=== PATIENT | male | born 1940 | race Caucasian/White ===

== ENCOUNTER 2016-07-04 00:04 | Observation (INO) | payer MEDICARE, OTHER ==
[2016-07-04] MEDS ORDERED: Aspirin Low Dose CHEW TAB* 81 MG PO ONE (00:09)
[2016-07-04 00:47] LABS: Hematocrit 35 % (42-52); Hemoglobin 11.6 g/dl (14.0-18.0); Mean Corpuscular HGB Conc 33 g/dl (31-36); Mean Corpuscular Hemoglobin 28 pg (27-31); Mean Corpuscular Volume 85 fL (80-94); Mean Platelet Volume 8 um3 (7.4-10.4); Red Blood Count 4.13 10^6/ul (4.0-5.4); Red Cell Distribution Width 14 % (10.5-15); White Blood Count 5.1 10^3/ul (3.5-10.8)
[2016-07-04 00:54] LABS: Calcium 9.4 mg/dL (8.6-10.3); EGFR African American 76.9 (>60); EGFR Non-African American 59.8 (>60); Globulin 3.1 g/dL (2-4); Potassium 3.6 mmol/L (3.5-5.0); Total Bilirubin 0.5 mg/dL (0.2-1.0); Total Protein 7.1 g/dL (6.4-8.9)
[2016-07-04 00:55] LABS: Troponin I 0.01 ng/mL (<0.04)
[2016-07-04] MEDS ORDERED: Morphine INJ* 4 MG/ML 1 ML SYRINGE IV ONE (01:02)
--- NOTE | 2016-07-04 01:14 | ED ---
Ina Carcamo Rebecca, scribed for Maya Guzmán MD on 07/04/16 at 0014 . HPI Chest Pain - HPI Summary HPI Summary: Pt is a 76 y/o M who presents to ED c/o CP. Pt reports he has been experiencing CP intermittently for "I don't know how long" with the current episode began gradually 1 week ago. Reports "I could feel it come on like a pulled muscle." Pain has been constant since onset, worsening at 2200 tonight. Pain is located in the left anterior region with radiation to the back and is currently ranked 10/10 and characterized as sharp. Sx aggravated and alleviated by nothing. Denies any other sx including fever. PMHx CAD, TN. No PSHx cardiac stents. FHx TN <55 y/o (mother in 50s). No PMHx DVT, CA. PCP is Dr Torres, lace cutter is Dr. Ivey. Reports his last stress test was 3 months ago, during which his lace cutter found that he had experienced an TN between his previous test and the current one. She was unsure when the TN had occurred. Denies any recent travel. Is not on blood thinners. - History of Current Complaint Chief Complaint: EDChestPainROMI Time Seen by Provider: 07/04/16 00:09 Hx Obtained From: Patient Onset/Duration: Started Hours Ago, Still Present Time of Onset: 22:00 Timing: Intermittent Initial Severity: Moderate Current Severity: Severe Pain Intensity: 8 Pain Scale Used: 0-10 Numeric Chest Pain Location: Left Anterior Chest Pain Radiates: Yes Chest Pain Radiates To:: Back Character: Sharp/Stabbing Aggravating Factor(s): Nothing Alleviating Factor(s): Nothing Associated Signs and Symptoms: Positive: Negative. Negative: Fever - Allergy/Home Medications Allergies/Adverse Reactions: Allergies Allergy/AdvReac Type Severity Reaction Status Date / Time Tramadol [From Ultracet] Allergy Unknown Itching Verified 04/01/16 08:35 Poison Sol[place]ad Extract/Poison Allergy ITCHING,REDNESS, Verified 04/01/16 08:35 Tracy Extra BLISTERS [From Poison Soledad/Tracy Extract] Poison Sumac Extract Allergy Itching, Verified 04/01/16 08:35 REDNESS, BLISTERS PMH/Surg Hx/FS Hx/Imm Hx Endocrine/Hematology History: Reports: Hx Thyroid Disease - THYROIDECTOMY Denies: Hx Diabetes Cardiovascular History: Reports: Hx Angina, Hx Coronary Artery Disease, Hx Hypercholesterolemia, Hx Hypertension - CONTROL WITH MEDS, Hx Myocardial Infarction, Other Cardiovascular Problems/Disorders - CHOLESTEROL CONTROL WITH ME9 Denies: Hx Deep Vein Thrombosis, Hx Pacemaker/ICD, Hx Valvular Heart Disease Respiratory History: Reports: Hx Sleep Apnea - NO MACHINES Denies: Hx Asthma, Hx Chronic Obstructive Pulmonary Disease (COPD), Other Respiratory Problems/Disorders GI History: Reports: Hx Gastroesophageal Reflux Disease - CONTROL WITH MEDICATION, Hx Jaundice History: Denies: Hx Renal Disease Musculoskeletal History: Reports: Hx Arthritis, Hx Back Problems, Hx Bursitis, Other Musculoskeletal History - HX OF CERVICAL SPONDYLOSIS Sensory History: Reports: Hx Contacts or Glasses - GLASSES Denies: Hx Hearing Aid Opthamlomology History: Reports: Hx Contacts or Glasses - GLASSES Neurological History: Reports: Hx Headaches - OCCASIONAL, Hx Migraine Psychiatric History: Denies: Hx Panic Disorder - Surgical History Surgery Procedure, Year, and Place: PARTIAL THYROID REMOVAL, [facility]. GALLBLADDER X2 ONE FROM COMPLICATIONS, [facility]. 2009 ABDOMINAL HERNIA REPAIRS WITH MESH 2009, [facility],. MOLES REMOVED Hx Anesthesia Reactions: No - Immunization History Date of Tetanus Vaccine: 2004 Date of Influenza Vaccine: None Infectious Disease History: No Infectious Disease History: Reports: Hx Hepatitis - 1968 Denies: Hx Clostridium Difficile, Hx Human Immunodeficiency Virus (HIV), Hx of Known/Suspected MRSA, Hx Shingles, Hx Tuberculosis, History Other Infectious Disease, Traveled Outside the [place] in Last 30 Days - Family History Known Family History: Positive: Cardiac Disease - TN <55 y/o (mother, in 50s), Hypertension, Other - younger sister in her 30s of unknown causes - Social History Alcohol Use: Rare Hx Substance Use: No Substance Use Type: Reports: None Hx Tobacco Use: Yes Smoking Status (MU): Former Smoker Type: Cigarettes Amount Used/How Often: 1-2 PPD Have You Smoked in the Last Year: No Review of Systems Negative: Fever Positive: Chest Pain All Other Systems Reviewed And Are Negative: Yes Physical Exam - Summary Physical Exam Summary: General: Well appearing, moderate distress Skin: Warm, Skin Color Reflects Adequate Perfusion, Dry Eyes: EOMI, ANUP ENT: Pharynx normal, TMs normal Neck: Supple, nontender Respiratory: CTA, breath sounds present, no rhonchi, no wheezes, no rales Cardiovascular: RRR, no murmur, no rub, no gallop Abdomen: Soft, nontender, Non-distended, no guarding, no rebound Bowel: Present Musculoskeletal: KALI, No edema Neuro: Sensory/motor intact, A&Ox3, CN intact 2-12 Psych: Affect/mood appropriate Triage Information Reviewed: Yes Vital Signs On Initial Exam: Initial Vitals Temp Pulse Resp BP Pulse Ox 97.4 F 65 11 169/92 95 07/04/16 00:06 07/04/16 00:06 07/04/16 00:06 07/04/16 00:06 07/04/16 00:06 Vital Signs Reviewed: Yes - Liseth Coma Scale Coma Scale Total: 15 Diagnostics - Vital Signs Vital Signs Temp Pulse Resp BP Pulse Ox 07/04/16 00:06 97.4 F 65 11 169/92 95 - Laboratory Lab Results: Lab Results 07/04/16 07/04/16 07/04/16 Range/Units 00:16 00:16 00:16 WBC 5.1 (3.5-10.8) 10^3/ul RBC 4.13 (4.0-5.4) 10^6/ul Hgb 11.6 L (14.0-18.0) g/dl Hct 35 L (42-52) % MCV 85 (80-94) fL MCH 28 (27-31) pg MCHC 33 (31-36) g/dl RDW 14 (10.5-15) % Plt Count 238 (150-450) 10^3/ul MPV 8 (7.4-10.4) um3 Neut % (Auto) 41.6 (38-83) % Lymph % (Auto) 23.4 L (25-47) % Kane % (Auto) 20.6 H (1-9) % Eos % (Auto) 13.8 H (0-6) % Baso % (Auto) 0.6 (0-2) % Absolute Neuts (auto) 2.1 (1.5-7.7) 10^3/ul Absolute Lymphs (auto) 1.2 (1.0-4.8) 10^3/ul Absolute Monos (auto) 1.1 H (0-0.8) 10^3/ul Absolute Eos (auto) 0.7 H (0-0.6) 10^3/ul Absolute Basos (auto) 0 (0-0.2) 10^3/ul Absolute Nucleated RBC 0.01 10^3/ul Nucleated RBC % 0.1 Sodium 136 (133-145) mmol/L Potassium 3.6 (3.5-5.0) mmol/L Chloride 105 (101-111) mmol/L Carbon Dioxide 24 (22-32) mmol/L Anion Gap 7 (2-11) mmol/L BUN 25 H (6-24) mg/dL Creatinine 1.19 H (0.67-1.17) mg/dL Est GFR ( Amer) 76.9 (>60) Est GFR (Non-Af Amer) 59.8 (>60) BUN/Creatinine Ratio 21.0 H (8-20) Glucose 107 H (70-100) mg/dL Lactic Acid 0.5 (0.5-2.0) mmol/L Calcium 9.4 (8.6-10.3) mg/dL Total Bilirubin 0.50 (0.2-1.0) mg/dL AST 27 (13-39) U/L ALT 21 (7-52) U/L Alkaline Phosphatase 56 (34-104) U/L Troponin I 0.01 (<0.04) ng/mL Total Protein 7.1 (6.4-8.9) g/dL Albumin 4.0 (3.2-5.2) g/dL Globulin 3.1 (2-4) g/dL Albumin/Globulin Ratio 1.3 (1-3) Result Diagrams: 07/04/16 00:16 07/04/16 00:16 Lab Statement: Any lab studies that have been ordered have been reviewed, and results considered in the medical decision making process. - Radiology CXR Xray Interpretation: No Acute Changes Radiology Interpretation Completed By: ED Physician - EKG 0003 Cardiac Rate: NL - 65 bpm EKG Rhythm: Sinus Rhythm EKG Interpretation: No Q waves, no ST elevations Chest Pain Course/Dx - Course Course Of Treatment: 76 yo male who reports being told by his lace cutter at his last stress that he had sustained a silent TN. Here he reports 1 week of sustained cp worse for the last 2 hours radiating to his back, his bp is elevated, first trop and ekg are neg. CTA of the chest/abd/pelvis are ordered to R/o dissection and is aware. - Diagnoses Provider Diagnoses: Chest pain - Provider Notifications Discussed Care Of Patient With: Dr. Carson, hospitalist, who accepts pt for admission. Time Discussed With Above Provider: 01:04 Discharge - Discharge Plan Condition: Good Disposition: ADMITTED TO [facility] Referrals: Kofi Torres MD [Primary Care Provider] - The documentation as recorded by the Ina bryson Rebecca accurately reflects the service I personally performed and the decisions made by me, Maya Guzmán MD.
[2016-07-04] MEDS ORDERED: Iodixanol* (CONTRAST) 320 MG/ML 100 ML SDV IV ONE (01:26)
[2016-07-04] MEDS ORDERED: Melatonin (NF) 3 MG TAB PO PRN (02:27)
[2016-07-04] MEDS ORDERED: Ondansetron INJ* 2 MG/ML VIAL IV PRN (02:27)
[2016-07-04] MEDS ORDERED: Albuterol 2.5 MG/3 ML NEB.SOL* (0.083%) INH PRN (02:27)
[2016-07-04] MEDS ORDERED: Morphine INJ* 2 MG/ML 1 ML SYRINGE IV PRN (02:27)
[2016-07-04] MEDS ORDERED: NS 0.9% 1000 ML* 1,000 ML IV SCH (02:30)
--- NOTE | 2016-07-04 03:31 | HP ---
H&P (Free Text) History and Physical: PCP: José Manuel Torres MD Cardiology: José Manuel Ivey MD Date/Time of Evaluation: 07/04/2016 0230 CC: chest pain HPI: Mr Amato is a 76YO obese male HX CAD/[place] who is a vague historian. He has been having episodic L chest pain followed by José Manuel Ivey MD cardiology. Tonight he brought his [place] [facility] [place] a gait disturbance and while awaiting her evaluation experienced a sudden exacerbation of his anterior L chest pain. He relates the current episode began ~1 week ago and has been continuous although waxing/waning, but tonight increased suddenly. He denies change in activity or exercise. Deep breath makes the pain some worse and it radiates through to the mid-back, but there is no overt SOB, palpitations, N/V, sweats, or light- headedness. He describes it as a "pulled muscle", but denies squeezing/cramping character. He reports he most recent stress test and ECHO were 2-3 months ago, but reports are not available for review. PMedHx CAD/[place] HTN HLD hypothyroidism RENEE not on CPAP GERD chronic R shoulder pain/rotator cuff tear Ambulatory Orders Levothyroxine TAB* [Synthorid 112 MCG TAB*] 112 mcg PO EVERY OTHER DAY 09/27/13 Omeprazole CAP* [Prilosec CAP* 20 MG] 40 mg PO BID 04/18/15 Atorvastatin* [Lipitor 20 MG*] 20 mg PO QPM 07/23/15 Aspirin EC Low Dose* [Ecotrin EC Low Dose 81 MG*] 81 mg PO DAILY 10/03/15 Fenofibrate Micronized 200 mg PO QAM 10/03/15 Metoprolol Succinate XL TAB* [Toprol XL TAB*] 25 mg PO DAILY 10/03/15 amLODIPine TAB* [Norvasc 5 mg TAB*] 10 mg PO DAILY 10/03/15 Ajzjuwy-Puzblacdojjxz-Jneyqbea [Excedrin Extra Strength 250-250-65 mg] 3 tab PO DAILY PRN 12/05/15 Allergies Tramadol [From Ultracet] Allergy (Unknown, Verified 04/01/16 08:35) Itching ITCHING ON ARM Poison Soledad Extract/Poison [place] Extra [From Poison Soledad/[place] Extract] Allergy ( Verified 04/01/16 08:35) ITCHING,REDNESS, BLISTERS Poison Sumac Extract Allergy (Verified 04/01/16 08:35) Itching, REDNESS, BLISTERS PSurgHx partial thyroidectomy R rotator repair x2 cholecystectomy hernia repair SocHx: former smoker w/ ~25PYHX, mild alcohol, no recreational drugs; lives with his ; retired ; full code status FamHx: Mother passed of cancer. Father was murdered in his 50s. Otherwise positive for seizures, cancer, HTN, HLD ROS: as above, otherwise reviewed and all were negative Constitutional: NAD, normally developed, obese white male vitals: Vital Signs Temp 36.3 C 07/04/16 00:06 Pulse 64 07/04/16 03:00 Resp 20 07/04/16 03:00 BP 142/87 07/04/16 01:30 Pulse Ox 99 07/04/16 03:00 Intake & Output 07/03/16 07/03/16 07/04/16 11:59 23:59 11:59 Weight 108.862 kg HEENM: atraumatic; sclera/conjunctiva: non-icteric/mildly injected; hearing: clinically mildly decreased; oropharynx: clear, mucosa moist Neck: soft tissue: non-tender; thyroid: normal Pulmonary: clear to auscultation bilaterally, good aeration, no accessory muscle use CV: RR/RR, normal S1S2, no carotid bruit, no jugular venous distention, 2+ B DP/ PT, no edema Abdominal: soft, non-distended, non-tender, no rebound/guarding/rigidity, normoactive bowel sounds, no hepatosplenomegaly or masses, no costovertebral angle tenderness Musculoskeletal: general: gorssly intact; gait: stable Integumental: normal appearance and texture of exposed skin Psychiatric orientation: AA&O to PPS affect: mild pain, spiking occasionally to moderate pain affect mood: cooperative eye contact: good content: reliable, but vague with a paucity of details responses: timely insight: fair to good Testing: Lab Results 07/04/16 07/04/16 07/04/16 Range/Units 00:16 00:16 00:16 WBC 5.1 (3.5-10.8) 10^3/ul RBC 4.13 (4.0-5.4) 10^6/ul Hgb 11.6 L (14.0-18.0) g/dl Hct 35 L (42-52) % MCV 85 (80-94) fL MCH 28 (27-31) pg MCHC 33 (31-36) g/dl RDW 14 (10.5-15) % Plt Count 238 (150-450) 10^3/ul MPV 8 (7.4-10.4) um3 Neut % (Auto) 41.6 (38-83) % Lymph % (Auto) 23.4 L (25-47) % Mccracken % (Auto) 20.6 H (1-9) % Eos % (Auto) 13.8 H (0-6) % Baso % (Auto) 0.6 (0-2) % Absolute Neuts (auto) 2.1 (1.5-7.7) 10^3/ul Absolute Lymphs (auto) 1.2 (1.0-4.8) 10^3/ul Absolute Monos (auto) 1.1 H (0-0.8) 10^3/ul Absolute Eos (auto) 0.7 H (0-0.6) 10^3/ul Absolute Basos (auto) 0 (0-0.2) 10^3/ul Absolute Nucleated RBC 0.01 10^3/ul Nucleated RBC % 0.1 Sodium 136 (133-145) mmol/L Potassium 3.6 (3.5-5.0) mmol/L Chloride 105 (101-111) mmol/L Carbon Dioxide 24 (22-32) mmol/L Anion Gap 7 (2-11) mmol/L BUN 25 H (6-24) mg/dL Creatinine 1.19 H (0.67-1.17) mg/dL Est GFR ( Amer) 76.9 (>60) Est GFR (Non-Af Amer) 59.8 (>60) BUN/Creatinine Ratio 21.0 H (8-20) Glucose 107 H (70-100) mg/dL Lactic Acid 0.5 (0.5-2.0) mmol/L Calcium 9.4 (8.6-10.3) mg/dL Total Bilirubin 0.50 (0.2-1.0) mg/dL AST 27 (13-39) U/L ALT 21 (7-52) U/L Alkaline Phosphatase 56 (34-104) U/L Troponin I 0.01 (<0.04) ng/mL Total Protein 7.1 (6.4-8.9) g/dL Albumin 4.0 (3.2-5.2) g/dL Globulin 3.1 (2-4) g/dL Albumin/Globulin Ratio 1.3 (1-3) ECG, personally reviewed: NSR rate 65, no ischemia CXR, personally reviewed: no acute cardiopulmonary process noted CTA chest/abd/pel, personally reviewed: Impression: No aortic dissection or aneurysm seen. No central pulmonary embolism identified. No acute abnormality seen in the chest. Hypervascular focus seen in the lateral segment of the left lobe of the liver. This finding is nonspecific. In the setting of hepatitis C, consider further evaluation. No inflammatory process identified in the abdomen or pelvis. No abdominal mass, adenopathy, or collection seen. Impression: 76M HX CAD/KY presenting with chest pain for r/o ACS DIAGNOSIS & PLAN Primary chest pain r/o ACS; HX CAD/KY : telemetry : aspirin : metoprolol (took home med today) : supplemental oxygen : trend troponin : supportive care : obtain records from José Manuel Ivey MD regarding recent stress/ECHO Secondary HTN : continue metoprolol & amlodipine HLD : continue atorvastatin : heart healthy diet hypothyroidism : continue levothyroxine GERD : continue omeprazole chronic R shoulder pain/rotator cuff tear : pain control Admission Rational: CDU observation for r/o ACS DVTp: heparin SQ Code Status: full HCP: sonRegulo
[2016-07-04] MEDS: Acetaminophen TAB* 325 MG PO PRN ×2 (05:59→12:11)
[2016-07-04] MEDS ORDERED: Omeprazole CAP* 20 MG PO SCH (06:00)
--- NOTE | 2016-07-04 08:03 | RAD ---
INDICATION: Left-sided chest pain COMPARISON: Similar chest x-ray December 06, 2015 TECHNIQUE: Single AP portable view of the chest was obtained. FINDINGS: Image quality is compromised due to the relative inferiority of a portable chest x-ray. The heart and mediastinum exhibit normal size and contour. The lungs are grossly clear. There is no evidence of a large pleural effusion. Visualized bones are normal for the patient's age. IMPRESSION: No radiographic evidence for acute cardiopulmonary abnormality on this portable chest x-ray.
--- NOTE | 2016-07-04 08:38 | RAD ---
STUDY: CT angiography of the chest, abdomen and pelvis. INDICATION: Chest pain with radiation to the back. Relevant surgical history includes thyroidectomy, cholecystectomy and abdominal hernia repair with mesh placement. COMPARISON: Similar CTA dated March 03, 2014 TECHNIQUE: Multidetector CT angiography of the chest, abdomen and pelvis were obtained from the lung apices to the ischial tuberosities after the intravenous injection of 100 mL of Visipaque 320. Reformats were created in the coronal and sagittal planes. 3-D vascular imaging was created from the source images and reviewed as well. ANGIOGRAPHIC FINDINGS: There is mild calcified atherosclerosis involving the coronary arteries, aortic ring and scattered the thoracic aorta. There is no pathologic aneurysmal dilatation or dissection visualized. The infrarenal abdominal aorta exhibits very mild scattered atherosclerotic calcification but no aneurysmal dilatation or dissection. The branch vessels are widely patent both at the arch of the aorta and the abdominal aorta. Incidental note is made of a common origin of the right brachiocephalic trunk and left common carotid artery. Anatomic variant includes a replaced right renal artery with the artery supplying the right kidney branching off of the right of midline posterior lateral supradiaphragmatic aorta, crossing the diaphragm before supplying the right kidney. NON ANGIOGRAPHIC FINDINGS: Chest: The lungs exhibit diffuse centrilobular emphysematous changes similar in appearance to the previous CTA. At the superior aspect of the right lower lobe (image 29 of 75) there is a 6 mm slightly irregular pulmonary nodule. There are no large pleural effusions. There is no mediastinal or hilar lymphadenopathy. The heart is grossly normal in appearance. Abdomen \T\ Pelvis: In the left lobe of the liver there is an approximately 2.1 cm focus exhibiting arterial phase enhancement along the periphery (image 101) that was not definitely visualized on the previous CT examination. In the right lobe of the liver there is a fluid density cyst stable compared to the previous CT examination. The liver is otherwise homogenous in attenuation. The spleen, pancreas and adrenal glands are grossly normal in appearance. The gallbladder is surgically absent. The kidneys are normal in appearance without focal mass, calcification or signs of hydronephrosis. The renal cortices enhance promptly and symmetrically on arterial phase imaging. The small and large bowel are not distended. The appendix is normal in appearance (coronal image 49). Distal colonic diverticula are noted, but none exhibit focal inflammatory change. There is no gross retroperitoneal or mesenteric lymphadenopathy. Scattered calcifications are noted in the prostate gland. Multilevel degenerative changes of the thoracic and lumbar spine include loss of intervertebral disc height, vacuum disc phenomenon and marginal osteophyte formation, bridging at the lower anterior thoracic spine.There are no sinister bone lesions. IMPRESSION: 1. No CTA evidence of aortic aneurysm or acute dissection. There are chronic changes as well as anatomical variants described in the body the report. 2. In the left lobe of the liver there is a 2.1 cm focus with arterial phase enhancement. This was not definitely seen on the 2015 CT examination and could represent a flash filling hemangioma versus a more sinister etiology. Further characterization can be made with ultrasound or contrast-enhanced MRI of the liver. 3. Additional chronic, degenerative and iatrogenic findings described in the body the report.
[2016-07-04] MEDS ORDERED: Docusate CAP* 100 MG PO SCH (09:00)
[2016-07-04 17:01] VITALS: BP 148/84
--- NOTE | 2016-07-04 17:31 | PN ---
Hospitalist Progress Note . HOSPITALIST DISCHARGE NOTE: See dc instructions and summary by me. Patient stable for dc dc instructions reviewed with the patient at the bedside. DC patient home today.
[2016-07-05] MEDS ORDERED: Heparin VIAL(*) 5000 UNITS/ML VIAL (FIVE THOUSAND) SUBCUT SCH (06:00)
--- NOTE | 2016-07-08 06:30 | DS ---
DISCHARGE SUMMARY: DATE OF ADMISSION: 07/04/16 DATE OF DISCHARGE: 07/04/16. STATUS DURING HOSPITALIZATION: Same-day observation stay. PRIMARY CARE PHYSICIAN: Dr. Kofi Torres. CONSUMER SALES REPRESENTATIVE: Dr. Leatha Ivey. PRINCIPAL DISCHARGE DIAGNOSIS: Chest pain - noncardiac - longstanding, without change - potentially exacerbated by stress of his 's admission, which happened concurrently with his. SECONDARY DIAGNOSES: 1. Known coronary artery disease. 2. History of myocardial infarction. 3. Hypertension. 4. Hyperlipidemia. 5. Hypothyroidism. 6. Obstructive sleep apnea - not on CPAP. 7. Gastroesophageal reflux disease. 8. Chronic right shoulder pain/rotator cuff repair. DISCHARGE MEDICATION REGIMEN: 1. Levothyroxine 112 mcg by mouth daily. 2. Omeprazole 40 mg by mouth twice daily. 3. Atorvastatin 20 mg by mouth daily. 4. Metoprolol succinate XL 25 mg by mouth daily. 5. Amlodipine 10 mg by mouth daily. 6. Fenofibrate micronized 200 mg by mouth in the morning. 7. Aspirin enteric-coated 81 mg by mouth daily. 8. Aspirin/acetaminophen/caffeine (Excedrin Extra Strength) three tabs orally daily as needed for headache when they occur. HISTORY OF PRESENT ILLNESS AND HOSPITAL COURSE: Please see the H and P by Dr. Dale Carson on 07/04/16. In brief, Mr. Amato is a 76-year-old obese man, with a history of coronary artery disease and myocardial infarction, who is a vague historian, but has been having episodic left chest pain for some time. The patient is followed in the outpatient setting by Leatha Ivey, retail parts professional at [facility]. The patient was accompanying his to the emergency room for a separate issue when he started experiencing anterior left chest pain. This had been going on for about a week, but is worse as he waits with his . The patient denies any activity, any exercise. He says deep breathing makes the pain somewhat worse and it radiates to his mid back. There was no overt shortness of breath, palpitations, nausea, vomiting, sweats or lightheadedness. He described the sensation as a "pulled muscle," and with a cramping character. Patient recently had an outpatient stress test and echocardiogram in the past few months and they were not immediately available for review on presentation. Dr. Leatha Ivey kindly provided these documents following his admission, which noted he has an old inferior wall myocardial infarction (based on nuclear stress testing) that was silent. The patient was feeling well. He is being actively managed for secondary prevention of his coronary disease. The impression of the stress test was that there was abnormal maximal cardiac exercise nuclear stress test with small sized inferior apical infarct with mild rossana-infarct ischemia, with concomitant inferior/inferior apical diaphragmatic attenuation artifact, which together was a low risk study. Patient was therefore, discharged in stable condition following recurrent, negative cardiac enzymes and an unremarkable EKG. His labs were at baseline and he is asymptomatic at the point of discharge. He is to follow up with Dr. Torres and Dr. Ivey according to his usual schedule and come back to the hospital if he experiences any new or worrisome symptoms that do not resolve promptly with treatments. TIME SPENT: Total time taken to discharge Mr. Amato was 35 minutes; greater than half the time spent going over the discharge instructions [id number] with the patient at the bedside. CONDITION AT DISCHARGE: Stable. CC: Dr. Kofi Torres; Dr. Leatha Ivey* [id number]/[facility] #: [id number] [facility]
== END 2016-07-04 16:56 | disposition home or self-care (01) ==
LOC: ED 00:04 → MEDTELE 02:25
PROVIDERS: ADMIT Hospitalist; ATTEND Internal Medicine
DX: R07.89 Other chest pain (principal); I25.10 Atherosclerotic heart disease of native coronary artery without angina pectoris; I10 Essential (primary) hypertension; E78.5 Hyperlipidemia, unspecified; E03.9 Hypothyroidism, unspecified; G47.33 Obstructive sleep apnea (adult) (pediatric); K21.9 Gastro-esophageal reflux disease without esophagitis; E66.9 Obesity, unspecified; Z79.899 Other long term (current) drug therapy; Z79.82 Long term (current) use of aspirin; Z87.891 Personal history of nicotine dependence; Z88.8 Allergy status to other drugs, medicaments and biological substances; R94.31 Abnormal electrocardiogram [ECG] [EKG]
CPT/HCPCS: 36415; 71010; 71275; 74174; 80053; 83605; 84484; 85025; 93005; 96360; 96361; 99283; A9270-GY; G0378; Q9967

== ENCOUNTER 2019-01-05 15:25 | Emergency (ER) | payer MEDICARE, OTHER ==
--- NOTE | 2019-01-05 16:31 | ED ---
HPI Chest Pain - HPI Summary HPI Summary: Patient is a 78 y/o M presenting to the ED for a chief complaint of intermittent left-sided chest pain. Patient is present with his . On the night of 01/04/19, patient reports the chest pain became constant. Patient reports the chest pain began a few months ago. The chest pain radiates to the left flank and back. Patient denies SOB, diaphoresis, nausea, vomiting, bilateral LE swelling or pain. Patient recently saw Dr. Arriaga and had a cardiac stress test performed 6 months ago. At that time, he was told he had a AK. PMHx is significant for HLD and HTN. FMHx is significant for AK. Patient denies tobacco use, alcohol use, or drug use. Patient takes [address] Torres is the patient's PCP. Medications reviewed. Allergies noted. - History of Current Complaint Chief Complaint: EDChestPainROMI Time Seen by Provider: 01/05/19 15:44 Hx Obtained From: Patient Onset/Duration: Atraumatic, Still Present Timing: Intermittent Initial Severity: Mild Current Severity: Mild Pain Intensity: 2 Pain Scale Used: 0-10 Numeric Chest Pain Location: Left Anterior Chest Pain Radiates: Yes Chest Pain Radiates To:: Back, Flank - Left Aggravating Factor(s): Nothing Alleviating Factor(s): Nothing Associated Signs and Symptoms: Positive: Chest Pain. Negative: Shortness of Breath, Diaphoresis, Nausea, Vomiting, Edema - Bilteral LE - Additional Pertinent History Primary Care Physician: [id number] - Allergy/Home Medications Allergies/Adverse Reactions: Allergies Allergy/AdvReac Type Severity Reaction Status Date / Time poison jackie extract Allergy Blisters Verified 01/05/19 16:33 poison oak extract Allergy Blisters Verified 01/05/19 16:33 poison sumac extract Allergy Blisters Verified 01/05/19 16:33 tramadol Allergy Itching Verified 01/05/19 16:33 PMH/Surg Hx/FS Hx/Imm Hx Previously Healthy: Yes Endocrine/Hematology History: Reports: Hx Thyroid Disease - hypothyroid Denies: Hx Diabetes Cardiovascular History: Reports: Hx Angina, Hx Coronary Artery Disease, Hx Hypercholesterolemia, Hx Hypertension, Hx Myocardial Infarction, Other Cardiovascular Problems/Disorders - CHOLESTEROL CONTROL WITH ME9 Denies: Hx Deep Vein Thrombosis, Hx Pacemaker/ICD, Hx Valvular Heart Disease Respiratory History: Reports: Hx Sleep Apnea - NO MACHINES Denies: Hx Asthma, Hx Chronic Obstructive Pulmonary Disease (COPD), Other Respiratory Problems/Disorders GI History: Reports: Hx Gastroesophageal Reflux Disease, Hx Jaundice History: Denies: Hx Dialysis, Hx Renal Disease Musculoskeletal History: Reports: Hx Arthritis, Hx Back Problems, Hx Bursitis, Other Musculoskeletal History - HX OF CERVICAL SPONDYLOSIS Sensory History: Reports: Hx Contacts or Glasses - GLASSES, Hx Hearing Problem Denies: Hx Legally Blind, Hx Deafness, Hx Hearing Aid Opthamlomology History: Reports: Hx Contacts or Glasses - GLASSES Denies: Hx Legally Blind EENT History: Denies: Hx Deafness Neurological History: Reports: Hx Headaches - OCCASIONAL, Hx Migraine Psychiatric History: Denies: Hx Panic Disorder - Surgical History Surgical History: Yes Surgery Procedure, Year, and Place: PARTIAL THYROID REMOVAL, [facility]. GALLBLADDER X2 ONE FROM COMPLICATIONS, [facility]. 2010 ABDOMINAL HERNIA REPAIRS WITH MESH 2009, [facility],. MOLES REMOVED. Rt SHOULDER - Xs 2 - RCT AND BICEP TEAR Hx Anesthesia Reactions: No - Immunization History Date of Tetanus Vaccine: 2004 Date of Influenza Vaccine: None Infectious Disease History: No Infectious Disease History: Reports: Hx Hepatitis - 1967 Denies: Hx Clostridium Difficile, Hx Human Immunodeficiency Virus (HIV), Hx of Known/Suspected MRSA, Hx Shingles, Hx Tuberculosis, History Other Infectious Disease, Traveled Outside the [place] in Last 30 Days - Family History Known Family History: Positive: Cardiac Disease - AK <55 y/o (mother, in 50s), Hypertension, Other - younger sister in her 30s of unknown causes - Social History Occupation: Retired Lives: With Family Alcohol Use: Rare Hx Substance Use: No Substance Use Type: Reports: None Hx Tobacco Use: Yes Smoking Status (MU): Former Smoker Type: Cigarettes Amount Used/How Often: 1-2 PPD Have You Smoked in the Last Year: No Review of Systems Negative: Skin Diaphoresis Positive: Chest Pain Negative: Shortness Of Breath Negative: Vomiting, Nausea Positive: Myalgia - Negative bilateral LE, positive left flank and back that radiates from chest. Negative: Edema - Bilateral LE All Other Systems Reviewed And Are Negative: Yes Physical Exam - Summary Physical Exam Summary: Constitutional: Well-developed, Well-nourished, Alert. (-) Distressed Skin: Warm, Dry HENT: Normocephalic; Atraumatic Eyes: Conjunctiva normal Neck: Musculoskeletal ROM normal neck. (-) JVD, (-) Stridor, (-) Tracheal deviation Cardio: Rhythm regular, rate normal, Heart sounds normal; Intact distal pulses; Radial pulses are 2+ and symmetric. (-) Murmur Pulmonary/Chest wall: Effort normal. (-) Respiratory distress, (-) Wheezes, (-) Rales Abd: Soft, (-) tenderness, (-) Distension, (-) Guarding, (-) Rebound Musculoskeletal: (-) Edema Lymph: (-) Cervical adenopathy Neuro: Alert, Oriented x3 Psych: Mood and affect Normal Triage Information Reviewed: Yes Vital Signs On Initial Exam: Initial Vitals Temp Pulse Resp BP Pulse Ox 97.2 F 88 16 153/82 98 01/05/19 15:31 01/05/19 15:31 01/05/19 15:31 01/05/19 15:31 01/05/19 15:31 Vital Signs Reviewed: Yes Procedures - Sedation Patient Received Moderate/Deep Sedation with Procedure: No Diagnostics - Vital Signs Vital Signs Temp Pulse Resp BP Pulse Ox 01/05/19 15:31 97.2 F 88 16 153/82 98 - Laboratory Result Diagrams: 01/05/19 16:44 01/05/19 16:44 Lab Statement: Any lab studies that have been ordered have been reviewed, and results considered in the medical decision making process. - Radiology Chest X-ray Radiology Interpretation Completed By: Radiologist Summary of Radiographic Findings: Chest X-ray IMPRESSION: NO EVIDENCE FOR ACTIVE CARDIOPULMONARY DISEASE. Reviewed by Dr. Brink. - EKG 15:31 Cardiac Rate: NL - 86 BPM EKG Rhythm: Sinus Rhythm ST Segment: Normal Ectopy: None Summary of EKG Findings: EKG at 15:31 reveals 86 BPM with normal sinus rhythm, Q wave inversions in lead III, no STEMI. Reviewed and interpreted by Dr. Brink. Chest Pain Course/Dx - Course Course Of Treatment: Patient is here with episodic chest pain. 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 Patient does not state that his chest pain is getting more frequent in nature. Patient's chest pain is not exertional in nature. Patient had an EKG performed showed no evidence of ischemia. Patient had negative serial troponin. Patient's story is not consistent with PE or dissection. Patient had a negative chest x-ray. Given patient's recent stress test, patient was not admitted for repeat stress test but was encouraged to call his cardiol just for possible outpatient catheter procedure. - Diagnoses Provider Diagnoses: Chest pain Discharge ED - Sign-Out/Discharge Documenting (check all that apply): Patient Departure - Discharge - Discharge Plan Condition: Stable Disposition: HOME Patient Education Materials: Chest Pain (ED) Referrals: Kofi Torres MD [Primary Care Provider] - Leatha Arriaga MD [Medical Doctor] - Additional Instructions: CALL DR. ARRIAGA TO DISCUSS YOUR CHEST PAIN AND YOUR RECENT STRESS TEST. RETURN TO THE EMERGENCY DEPARTMENT FOR SEVERE CHEST PAIN THAT IS NOT TYPICAL, TROUBLE BREATHING, OR ANY OTHER CONCERNING SYMPTOMS. - Billing Disposition and Condition Condition: STABLE Disposition: Home - Attestation Statements Document Initiated by Huseyin: Yes Documenting Scribe: Nathalie Montez Provider For Whom Huseyin is Documenting (Include Credential): Arturo Brink MD Scribe Attestation: Nathalie Carcamo, scribed for Arturo Brink MD on 01/08/19 at 0916. Scribe Documentation Reviewed: Yes Provider Attestation: The documentation as recorded by the Nathalie bryson accurately reflects the service I personally performed and the decisions made by , Arturo Brink MD Status of Scribe Document: Viewed
[2019-01-05] MEDS ORDERED: Aspirin 81 mg CHEW TAB* 81 MG TAB.CHEW PO ONE (16:51)
[2019-01-05 17:00] LABS: ABS Eosinophils 0.2 10^3/ul (0-0.6); ABS Lymphocytes 0.9 10^3/ul (1.0-4.8); ABS Monocytes 0.8 10^3/ul (0-0.8); ABS Neutrophils 2.8 10^3/ul (1.5-7.7); Eosinophil % 3.9 %; Hematocrit 38 % (42-52); Hemoglobin 12.8 g/dL (14.0-18.0); Lymphocyte % 18.5 %; Mean Corpuscular HGB Conc 34 g/dL (31-36); Mean Corpuscular Hemoglobin 29 pg (27-31); Mean Corpuscular Volume 86 fL (80-94); Mean Platelet Volume 7.7 fL (7.4-10.4); Platelet Count 261 10^3/uL (150-450); Red Cell Distribution Width 14 % (10-15); White Blood Count 4.6 10^3/uL (3.5-10.8)
[2019-01-05 17:06] LABS: INR 1.07 (0.82-1.09)
[2019-01-05 17:15] LABS: Albumin/Globulin Ratio 1.2 (1-3); BUN/Creatinine Ratio 17.7 (8-20); Calcium 9.4 mg/dL (8.6-10.3); EGFR African American 92.1 (>60); EGFR Non-African American 76.2 (>60); Globulin 3.3 g/dL (2-4); Potassium 3.5 mmol/L (3.5-5.0); Total Bilirubin 0.5 mg/dL (0.2-1.0); Total Protein 7.3 g/dL (6.4-8.9)
[2019-01-05 17:16] LABS: Troponin I 0.01 ng/mL (<0.03)
[2019-01-05 21:17] VITALS: BP 143/85
== END 2019-01-05 21:18 | disposition home or self-care (01) ==
LOC: ED 15:25
DX: R07.89 Other chest pain (principal); I25.119 Atherosclerotic heart disease of native coronary artery with unspecified angina pectoris; I10 Essential (primary) hypertension; E78.00 Pure hypercholesterolemia, unspecified; Z79.82 Long term (current) use of aspirin; Z88.5 Allergy status to narcotic agent; Z91.09 Other allergy status, other than to drugs and biological substances; Z87.891 Personal history of nicotine dependence
CPT/HCPCS: 36415; 71046; 80053; 84484; 85025; 85610; 93005; 99283; A9270-GY

== ENCOUNTER 2022-09-13 08:14 | Inpatient (IN) ==
[2022-09-13 09:06] LABS: ABS Eosinophils 0.1 10^3/uL (0.0-0.5); ABS Lymphocytes 0.3 10^3/uL (1.0-4.8); ABS Monocytes 1.4 10^3/uL (0.0-1.1); ABS Neutrophils 3.4 10^3/uL (1.5-7.6); ABS Nucleated RBC 0.01 10^3/ul; Eosinophil % 1.8 %; Hematocrit 32.1 % (38-53); Hemoglobin 11.2 g/dL (13.2-16.3); Lymphocyte % 6.4 %; Mean Corpuscular Hemoglobin 29.3 pg (27-33); Mean Corpuscular Hgb Conc 34.8 g/dL (31-36); Mean Platelet Volume 7.6 fL (7.5-11.2); Nucleated Red Blood Cells % 0.1 /100 WBC (0.0-0.4); Platelet Count 201 10^3/uL (150-450); Red Blood Count 3.82 10^6/uL (4.06-5.63); Red Cell Distribution Width 13.7 % (12-17); White Blood Count 5.2 10^3/uL (3.6-10.2)
[2022-09-13 09:21] LABS: Albumin 3.7 g/dL (3.2-5.2); Albumin/Globulin Ratio 1.1 (1-3); C Reactive Protein 103.89 mg/L (<8.01); Creatinine, Serum 0.91 mg/dL (0.67-1.17); Globulin 3.4 g/dL (2-4); Potassium 3.6 mmol/L (3.5-5.0); Total Bilirubin 0.7 mg/dL (0.2-1.0); Total Protein 7.1 g/dL (6.4-8.9); eGFR CKD-EPI 85.2 (>60)
[2022-09-13 10:51] LABS: Erythrocyte Sed Rate 53 mm/Hr (0-19)
[2022-09-13] MEDS ORDERED: Gadoteridol (CONTRAST) 279.3 MG/ML 10 ML IV ONE (14:53)
[2022-09-13] MEDS ORDERED: Vancomycin 1,500 MG in NS 0.9% 250 ml 250 ML IVPB ONE (16:32)
[2022-09-13] MEDS ORDERED: Morphine 2 MG/ML SYRINGE IV PRN (18:20)
[2022-09-13] MEDS ORDERED: Enoxaparin 40 MG/0.4 ML SYR SUBCUT ONE (18:27)
[2022-09-13] MEDS: HYDROcodone/ACETAMIN 5/325 mg TAB PO PRN (18:49)
[2022-09-13] MEDS: Aspirin EC 81 mg TAB.EC (enteric coated) PO SCH (18:50)
[2022-09-13 19:05] LABS: Magnesium 1.7 mg/dL (1.9-2.7)
[2022-09-13] MEDS ORDERED: Magnesium Sulfate IV 3 GM in NS 0.9% 100 ml BAG 100 ML IVPB ONE (19:56)
[2022-09-13] MEDS ORDERED: KCL 20 MEQ/100 ML IVPREMIX 20 MEQ/100 ML BAG IV ONE (19:58)
[2022-09-13] MEDS ORDERED: cefTRIAXone 1 gm/50 mL D5W 1 GM/50 ML BAG IV ONE (20:17)
[2022-09-13] MEDS: cefTRIAXone 1 gm/50 mL D5W 1 GM/50 ML BAG IV SCH (20:22)
[2022-09-13 21:40] LABS: High Sensitivity Troponin 1 Hr 14 pg/mL (<20)
[2022-09-13 23:35] LABS: High Sensitivity Troponin 3 Hr 15 pg/mL (<20)
[2022-09-14] MEDS: Levothyroxine 100 MCG/5 ML VIAL IV SCH (05:59)
[2022-09-14 06:03] LABS: ABS Eosinophils 0.3 10^3/uL (0.0-0.5); ABS Lymphocytes 0.7 10^3/uL (1.0-4.8); ABS Monocytes 1.1 10^3/uL (0.0-1.1); ABS Neutrophils 1.8 10^3/uL (1.5-7.6); ABS Nucleated RBC 0.01 10^3/ul; Eosinophil % 7.4 %; Hematocrit 29.9 % (38-53); Hemoglobin 10.3 g/dL (13.2-16.3); Lymphocyte % 17.6 %; Mean Corpuscular Hemoglobin 29.7 pg (27-33); Mean Corpuscular Hgb Conc 34.5 g/dL (31-36); Mean Corpuscular Volume 86.1 fL (80-97); Mean Platelet Volume 8.2 fL (7.5-11.2); Nucleated Red Blood Cells % 0.2 /100 WBC (0.0-0.4); Platelet Count 205 10^3/uL (150-450); Red Blood Count 3.47 10^6/uL (4.06-5.63); Red Cell Distribution Width 13.7 % (12-17)
[2022-09-14 06:06] LABS: INR 1.18 (0.88-1.18)
[2022-09-14 06:16] LABS: Calcium 8.7 mg/dL (8.6-10.3); Creatinine, Serum 0.79 mg/dL (0.67-1.17); Magnesium 2.1 mg/dL (1.9-2.7); Potassium 3.6 mmol/L (3.5-5.0); eGFR CKD-EPI 89.8 (>60)
[2022-09-14] MEDS: Aspirin EC 81 mg TAB.EC (enteric coated) PO SCH (08:40)
[2022-09-14] MEDS: cefTRIAXone 1 gm/50 mL D5W 1 GM/50 ML BAG IV SCH (18:45)
[2022-09-14 20:23] LABS: High Sensitivity Troponin 1 Hr 10 pg/mL (<20)
[2022-09-15] MEDS: Levothyroxine 100 MCG/5 ML VIAL IV SCH (05:49)
[2022-09-15 07:24] LABS: ABS Eosinophils 0.4 10^3/uL (0.0-0.5); ABS Lymphocytes 0.7 10^3/uL (1.0-4.8); ABS Monocytes 0.7 10^3/uL (0.0-1.1); ABS Neutrophils 1.2 10^3/uL (1.5-7.6); Eosinophil % 14.2 %; Hematocrit 32.4 % (38-53); Hemoglobin 11.2 g/dL (13.2-16.3); Mean Corpuscular Hemoglobin 29.3 pg (27-33); Mean Corpuscular Hgb Conc 34.5 g/dL (31-36); Mean Corpuscular Volume 84.9 fL (80-97); Mean Platelet Volume 7.5 fL (7.5-11.2); Nucleated Red Blood Cells % 0.1 /100 WBC (0.0-0.4); Platelet Count 225 10^3/uL (150-450); Red Blood Count 3.82 10^6/uL (4.06-5.63); Red Cell Distribution Width 13.9 % (12-17); White Blood Count 3.1 10^3/uL (3.6-10.2)
[2022-09-15] MEDS ORDERED: Rocuronium 50 mg VIAL 10 mg/ml 5 ml VIAL (50 mg) ONE (08:40)
[2022-09-15] MEDS ORDERED: Dexamethasone IV 4 MG/ML VIAL 1 ml VIAL ONE (09:17)
[2022-09-15] MEDS ORDERED: Phenylephrine IV 10 MG/ML 1 ml VIAL ONE (09:17)
[2022-09-15] MEDS ORDERED: Lidocaine 2% PF 5 ML VIAL ONE (09:17)
[2022-09-15] MEDS ORDERED: Ondansetron 4 mg VIAL 2 MG/ML 2 ml VIAL ONE (09:17)
[2022-09-15] MEDS ORDERED: Sevoflurane BOTTLE ONE (09:17)
[2022-09-15] MEDS ORDERED: Sterile Water for Inj 10 ML ONE ×2 (09:17→09:18)
[2022-09-15] MEDS ORDERED: Propofol 10 MG/ML 20 ML BTL ONE (09:17)
[2022-09-15] MEDS ORDERED: fentaNYL 100 mcg/2 ml 50 MCG/ML VIAL ONE (09:21)
[2022-09-15 09:25] LABS: Erythrocyte Sed Rate 50 mm/Hr (0-19)
[2022-09-15] MEDS ORDERED: ceFAZolin 2 GM in NS PREMIX 2 GM/100 ML BAG IVPB ONE (09:48)
[2022-09-15] MEDS ORDERED: Bupivacaine 0.5% W/EPI SDV 10 ML VIAL INJ ONE (10:30)
[2022-09-15] MEDS: Aspirin EC 81 mg TAB.EC (enteric coated) PO SCH (10:42)
[2022-09-15] MEDS ORDERED: Acetaminophen IV 1 GM/100ML 1,000 MG/100 ML BAG IV ONE (12:34)
[2022-09-15] MEDS ORDERED: Ondansetron 4 mg VIAL 2 MG/ML 2 ml VIAL IV PRN (12:35)
[2022-09-15] MEDS ORDERED: fentaNYL 100 mcg/2 ml 50 MCG/ML VIAL IV PRN (12:35)
[2022-09-15] MEDS ORDERED: Naloxone 0.4 mg VIAL 0.4 mg/ml 1 ml VIAL IV PRN (12:35)
[2022-09-15] MEDS ORDERED: HYDROmorphone 1 MG/1 ML SYRINGE IV PRN (12:35)
[2022-09-15] MEDS: cefTRIAXone 1 gm/50 mL D5W 1 GM/50 ML BAG IV SCH (18:21)
[2022-09-16] MEDS: Levothyroxine 100 MCG/5 ML VIAL IV SCH (05:16)
[2022-09-16 07:30] LABS: Hematocrit 29.5 % (38-53); Hemoglobin 10.3 g/dL (13.2-16.3); Mean Corpuscular Hemoglobin 29.6 pg (27-33); Mean Corpuscular Hgb Conc 34.8 g/dL (31-36); Mean Corpuscular Volume 85.1 fL (80-97); Mean Platelet Volume 7.9 fL (7.5-11.2); Platelet Count 229 10^3/uL (150-450); Red Blood Count 3.47 10^6/uL (4.06-5.63); Red Cell Distribution Width 13.8 % (12-17); White Blood Count 5.5 10^3/uL (3.6-10.2)
[2022-09-16 07:42] LABS: Calcium 8.5 mg/dL (8.6-10.3); Creatinine, Serum 0.73 mg/dL (0.67-1.17); Magnesium 1.6 mg/dL (1.9-2.7); Potassium 3.7 mmol/L (3.5-5.0)
[2022-09-16] MEDS: HYDROcodone/Acetamin 10/325 TAB (NF) PO PRN (08:27)
[2022-09-16] MEDS: Aspirin EC 81 mg TAB.EC (enteric coated) PO SCH (08:27)
[2022-09-16 08:43] LABS: C Reactive Protein 13.44 mg/L (<8.01)
[2022-09-16] MEDS ORDERED: Magnesium Sulfate IV 3 GM in NS 0.9% 100 ml BAG 100 ML IVPB ONE (10:50)
[2022-09-16] MEDS ORDERED: cefTRIAXone 1 gm/50 mL NS BAG 1 GM/50 ML BAG IV SCH (18:30)
[2022-09-16] MEDS: HYDROcodone/ACETAMIN 5/325 mg TAB PO PRN (19:54)
[2022-09-17] MEDS: HYDROcodone/Acetamin 10/325 TAB (NF) PO PRN (01:53)
[2022-09-17 09:45] VITALS: BP 175/91
[2022-09-17] MEDS: Aspirin EC 81 mg TAB.EC (enteric coated) PO SCH (09:57)
[2022-09-19 10:54] LABS: Anaplasma phagocytophilum Negative (Negative); B. miyamotoi PCR, B Negative (Negative); Babesia divergens/MO-1 Negative (Negative); Babesia ducani Negative (Negative); Ehrlichia chaffeensis Negative (Negative); Ehrlichia ewingii/canis Negative (Negative); Ehrlichia muris eauclairensis Negative (Negative)
== END 2022-09-17 15:42 | disposition home or self-care (01) | DRG 549 ==
LOC: ED 08:14 → EDHOLD 08:14 → SUATTDRO 17:13 → SSU 22:30
PROVIDERS: ADMIT Internal Medicine; ATTEND Internal Medicine

== ENCOUNTER 2024-02-15 00:37 | Observation (INO) ==
[2024-02-15 03:32] LABS: ABS Lymphocytes 0.5 10^3/uL (1.0-4.8); ABS Monocytes 0.6 10^3/uL (0.0-1.1); ABS Neutrophils 3.5 10^3/uL (1.5-7.6); Eosinophil % 0.4 %; Hematocrit 31.7 % (38-53); Hemoglobin 10.9 g/dL (13.2-16.3); Lymphocyte % 11.6 %; Mean Corpuscular Hemoglobin 30.6 pg (27-33); Mean Corpuscular Hgb Conc 34.4 g/dL (31-36); Mean Corpuscular Volume 89.1 fL (80-97); Mean Platelet Volume 7.9 fL (7.5-11.2); Platelet Count 202 10^3/uL (150-450); Red Blood Count 3.56 10^6/uL (4.06-5.63); Red Cell Distribution Width 13.7 % (12-17); White Blood Count 4.7 10^3/uL (3.6-10.2)
[2024-02-15 03:59] LABS: ALT 10 U/L (7-52); AST 14 U/L (13-39); Albumin 3.9 g/dL (3.5-5.7); Albumin/Globulin Ratio 1.5 (1-3); Alkaline Phosphatase 94 U/L (35-149); Anion Gap 3 mmol/L (2-16); Blood Urea Nitrogen 20 mg/dL (6-24); CO2 Carbon Dioxide 28 mmol/L (22-32); Calcium 8.9 mg/dL (8.6-10.3); Chloride 105 mmol/L (101-111); Creatinine, Serum 0.83 mg/dL (0.67-1.17); Globulin 2.6 g/dL (2-4); Glucose 107 mg/dL (70-100); Magnesium 1.8 mg/dL (1.9-2.7); Sodium 136 mmol/L (135-145); Total Bilirubin 0.5 mg/dL (0.2-1.0); Total Protein 6.5 g/dL (6.4-8.9); eGFR CKD-EPI 87.4 (>60)
[2024-02-15 04:14] LABS: TSH Ultra Thyroid Stim Horm 3.35 mcIU/mL (0.34-5.60)
[2024-02-15] MEDS ORDERED: Magnesium Hydroxide LIQ 30 ML UDC PO PRN (04:21)
[2024-02-15] MEDS ORDERED: Senna TAB 8.6 mg TAB PO PRN (04:21)
[2024-02-15 04:25] LABS: Folate > 20.00 ng/mL (5.90-24.80)
[2024-02-15 04:26] LABS: Vitamin B12 121 pg/mL (180-914)
[2024-02-15] MEDS: Cyanocobalamin INJ 1,000 MCG/ML VIAL 1 ML VIAL IM ONE (05:06)
[2024-02-15] MEDS: Lactated Ringers 1000 ml BAG 1,000 ML IV SCH (05:13)
[2024-02-15 08:16] LABS: Activated Partial Thrombo Time 21.8 seconds (26.0-38.0); INR 1.19 (0.85-1.14)
[2024-02-15] MEDS: Sulfur Hexaflouride MICROSPHR 25 MG VIAL IV PRN (09:21)
[2024-02-15] MEDS: Heparin 5000 UNITS/ML 1 mL VIAL SUBCUT SCH (09:51)
[2024-02-15] MEDS: Aspirin EC 81 mg TAB.EC (enteric coated) PO SCH (09:51)
[2024-02-15] MEDS: Polyethylene Glycol 3350 17 GM PACKET PO SCH (09:51)
[2024-02-15] MEDS: Cholecalciferol (VIT D3) 1,000 unit TAB PO SCH (09:51)
[2024-02-15] MEDS: Gadoteridol (CONTRAST) 279.3 MG/ML 10 ML IV ONE (11:29)
[2024-02-15 13:43] LABS: % Iron Saturation 14 % (15-55); .Transferrin 243 mg/dL (203-362); Iron 49 ug/dL (50-212); Total Iron Binding Capacity 340 mcg/dL (250-450); Unsaturated Iron Binding 291 ug/dL
[2024-02-15 14:03] LABS: Ferritin 49.8 ng/mL (24-336)
[2024-02-15 15:51] LABS: CRP High Sensitivity 0.83 mg/L (<2.00)
[2024-02-15] MEDS: Ferric Gluconate IV 250 MG in NS 0.9% 250 ml 200 ML IVPB SCH (18:34)
[2024-02-15] MEDS: Enoxaparin 40 MG/0.4 ML SYR SUBCUT SCH (20:44)
[2024-02-16 06:01] LABS: Hematocrit 32.9 % (38-53); Hemoglobin 11.5 g/dL (13.2-16.3); Mean Corpuscular Hemoglobin 31.2 pg (27-33); Mean Platelet Volume 8.1 fL (7.5-11.2); Platelet Count 186 10^3/uL (150-450); Red Cell Distribution Width 13.7 % (12-17); White Blood Count 5.4 10^3/uL (3.6-10.2)
[2024-02-16 06:21] LABS: Creatinine, Serum 0.78 mg/dL (0.67-1.17)
[2024-02-16] MEDS: Cyanocobalamin INJ 1,000 MCG/ML VIAL 1 ML VIAL IM SCH (08:48)
[2024-02-16] MEDS: Al Hydrox/Mg Hydrox/Simet LIQ 30 ML UDC PO ONE (21:15)
[2024-02-16] MEDS: Pantoprazole VIAL 40 MG VIAL IV SCH (21:15)
[2024-02-16 22:44] LABS: High Sensitivity Troponin 1 Hr 42 pg/mL (<20)
[2024-02-17] MEDS: Butalb/Acetamin/Caff TAB 325-50-40MG PO ONE ×2 (10:17→14:50)
[2024-02-17] MEDS: Lidocaine PATCH 5% PATCH TRANSDERM SCH (10:17)
[2024-02-17] MEDS: ASA-APAP-CAFFEINE ES (NF) TAB PO SCH (15:20)
[2024-02-17] MEDS: Al Hydrox/Mg Hydrox/Simet LIQ 30 ML UDC PO ONE (21:28)
[2024-02-18 15:18] LABS: Copper, S 66 mcg/dL (73-129); Zinc, S 65 mcg/dL (60-106)
[2024-02-19 09:38] VITALS: BP 128/63
[2024-02-23] MEDS ORDERED: Cyanocobalamin INJ 1,000 MCG/ML VIAL 1 ML VIAL IM SCH (09:00)
== END 2024-02-19 12:40 | disposition home or self-care (01) ==
LOC: ED 00:37 → EDHOLD 00:37 → SUATTDRO 01:59 → MEDTELE 13:48
PROVIDERS: ADMIT Internal Medicine; ATTEND Internal Medicine